=== PATIENT | female | born 1975 | race Caucasian/White ===

== ENCOUNTER 2017-01-29 12:30 | Emergency (ER) | payer BC ==
[~2017-01-29] VITALS: Ht 162.6 cm; Wt 113.0 kg
[~2017-01-29 12:30] MED LIST: CEPH-331 PO
--- OUTSIDE RECORDS SUMMARY | 2017-01-29 12:34 | XMS REPORT | Continuity of Care Document ---
Author Author [facility] Address Unknown Phone Unavailable Allergies Medications Problems Date Dx Coded Attending Type Code Diagnosis Diagnosed By 04/10/2015 BRYON NGUYEN, HOLLEY Galaviz Ot 784.0 04/10/2015 BRYON NGUYEN, HOLLEY Galaviz Ot 787.01 04/10/2015 BRYON NGUYEN, HOLLEY Galaviz Ot E888.9 01/18/2016 GWEN OLMSTEAD Ot L03.114 01/18/2016 GWEN OLMSTEAD Ot S50.862A 01/18/2016 GWEN OLMSTEAD Ot W57.XXXA 04/29/2016 GWEN OLMSTEAD Ot L03.114 CELLULITIS OF LEFT UPPER LIMB 04/29/2016 GWEN OLMSTEAD Ot S50.862A INSECT BITE (NONVENOMOUS) OF LEFT FOREAR 04/29/2016 GWEN OLMSTEAD Ot W57.XXXA BIT/STUNG BY NONVENOM INSECT OTH NONVE 08/18/2016 GWEN OLMSTEAD Ot L03.114 CELLULITIS OF LEFT UPPER LIMB 08/18/2016 GWEN OLMSTEAD Ot S50.862A INSECT BITE (NONVENOMOUS) OF LEFT FOREAR 08/18/2016 GWEN OLMSTEAD Ot W57.XXXA BIT/STUNG BY NONVENOM INSECT OTH NONVE 08/19/2016 GWEN OLMSTEAD Ot L03.114 CELLULITIS OF LEFT UPPER LIMB 08/19/2016 GWEN OLMSTEAD D Ot S50.862A INSECT BITE (NONVENOMOUS) OF LEFT FOREAR 08/19/2016 GWEN OLMSTEAD Ot W57.XXXA BIT/STUNG BY NONVENOM INSECT OTH NONVE 08/20/2016 PAUL OLMSTEADICA D Ot L03.114 CELLULITIS OF LEFT UPPER LIMB 08/20/2016 GWEN OLMSTEAD Ot S50.862A INSECT BITE (NONVENOMOUS) OF LEFT FOREAR 08/20/2016 GWEN OLMSTEAD Ot W57.XXXA BIT/STUNG BY NONVENOM INSECT OTH NONVE 08/25/2016 GWEN OLMSTEAD Ot L03.114 CELLULITIS OF LEFT UPPER LIMB 08/25/2016 GWEN OLMSTEAD Ot S50.862A INSECT BITE (NONVENOMOUS) OF LEFT FOREAR 08/25/2016 GWEN OLMSTEAD Ot W57.XXXA BIT/STUNG BY NONVENOM INSECT OTH NONVE Procedures Results Encounters ACCT No. Visit Date/Time Discharge Status Pt. Type Provider Facility Loc./Unit Complaint [id number] 04/03/2015 09:16:00 2014 23:59:59 CLS Outpatient BRYON NGUYEN, [facility] RAD [id number] 01/29/2017 12:31:00 ACT Emergency SILVINA NGUYEN, [facility] ED [id number] 01/13/2016 16:09:00 ACT Outpatient GWEN OLMSTEAD [facility]
--- OUTSIDE RECORDS SUMMARY | 2017-01-29 12:35 | XMS REPORT | Continuity of Care Document ---
Author Author [facility] Address Unknown Phone Unavailable Allergies Medications Problems [...] Status Pt. Type Provider Facility Loc./Unit Complaint [id number] 04/03/2015 09:16:00 2014 23:59:59 CLS Outpatient BRYON NGUYEN, [facility] RAD [id number] 01/29/2017 12:31:00 ACT Emergency SILVINA NGUYEN, [facility] ED [id number] 01/13/2016 16:09:00 ACT Outpatient GWEN OLMSTEAD [facility]
[2017-01-29] MEDS ORDERED: SODIUM CHLORIDE FLUSH 10 ML SYR IV PRN (12:50)
[2017-01-29] MEDS ORDERED: ASPIRIN 81 MG CHEW (LOW-DOSE) PO ONE (12:50)
[2017-01-29] MEDS ORDERED: SODIUM CHLORIDE FLUSH 3 ML SYR IV PRN (12:50)
[2017-01-29] MEDS ORDERED: OMEP20CA12 PO (12:52)
[2017-01-29] MEDS: NITROGLYCERIN SUBLINGUAL 0.4 MG (NITROQUICK) TABLET SL PRN ×2 (12:56→13:09)
--- NOTE | 2017-01-29 13:05 | NUR ---
PT STATES AFTER 1ST NITRO HER CHEST PAIN TURNED FROM PRESSURE TO SHARP AND INCREASED TO A 10/10. PT IS ALSO NAUSEOUS AND TEARFUL.
[2017-01-29 13:09] LABS: BASOPHILS % (AUTO) 0 % (0-2); EOSINOPHILS # (AUTO) 0.1 10^3uL; EOSINOPHILS % (AUTO) 1 % (0-4); LYMPHOCYTES # (AUTO) 2.2 X10^3; MEAN CORPUSCULAR HEMOGLOBIN 29.4 PG (26.0-34.0); MEAN CORPUSCULAR HGB CONC 33.9 g/dL (31.0-37.0); MEAN CORPUSCULAR VOLUME 87 FL (80-100); MEAN PLATELET VOLUME 9.1 FL (6.0-9.5); MONOCYTES # (AUTO) 0.6 X10^3; MONOCYTES % (AUTO) 8 % (3-11); NEUTROPHILS # (AUTO) 4.9 X10^3; NEUTROPHILS % (AUTO) 62 % (51-67); PLATELET COUNT 366 10^3uL (150-450)
[2017-01-29] MEDS ORDERED: LORazepam 2 MG/ML (ATIVAN) 1 ML VIAL IV ONE ×2 (13:10→14:55)
[2017-01-29] MEDS ORDERED: HYDROmorphone 1 MG/ML (DILAUDID) SYRINGE IV ONE (13:10)
[2017-01-29] MEDS ORDERED: ONDANSETRON 2 MG/ML (Z0FRAN) 2 ML VIAL IV ONE (13:10)
--- NOTE | 2017-01-29 13:10 | NUR ---
AFTER 2ND NITRO PT STATES PAIN DOWN TO 4-5 AND TIGHTNESS IS GONE, PT CALMER NOW. AT BEDSIDE.
[2017-01-29 13:35] LABS: ALBUMIN 4.6 g/dL (3.4-5.0); ALKALINE PHOSPHATASE 79 U/L (38-126); ANION GAP 17.8 MEQ/L (3-15); BUN/CREATININE RATIO 19 (10-20); CALCULATED IONIZED CALCIUM 3.9 mg/dL (3.8-4.6); TOTAL PROTEIN 8.1 g/dL (6.4-8.5)
--- NOTE | 2017-01-29 13:56 | Diagnostic Imaging Report ---
INDICATION: Chest pain. Portable chest 1:44 PM. Heart size and pulmonary vascularity are normal. Lungs are clear. There are no effusions or pneumothoraces. IMPRESSION: Negative chest. Dictated by: Dictated on workstation # [id number]
[2017-01-29] MEDS ORDERED: GI COCKTAIL 55 ML UDC PO ONE (14:55)
[2017-01-29 15:39] VITALS: BP 113/69
== END 2017-01-29 15:27 | disposition home or self-care (01) ==
LOC: ED 12:31
DX: R07.9 Chest pain, unspecified (principal)
CPT/HCPCS: 36415; 71010; 80053; 84484; 85025; 85379; 93005; 96374; 96375; 99284; J1170; J2060; J2405; 93010; 99285